=== PATIENT | female | born 1990 | race Hispanic/Latino ===

== ENCOUNTER 2024-07-10 18:55 | Inpatient (IN) | payer OTHER, SELFPAY ==
--- NOTE | ~2024-07-10 | CT_ITS ---
CT abdomen pelvis w con Ordering provider: Maddie Chavira MD History: 34 years Female with . L flank pain . Comparison: None. Technique: CT abdomen and pelvis with IV and without oral contrast. Automated exposure control and it erative reconstruction technique were employed. The dose-length product was 794.32 mGy-cm. 100 mL of Omnipaque 350 Findings: VISUALIZED LOWER CHEST: Dependent atelectatic changes. UPPER ABDOMINAL ORGANS: Liver: Hepatomegaly. Gallbladder: Normal. Spleen: Normal. Stomach/duodenum: Normal. Pancreas: Normal. Adrenals: Normal. Kidneys: 3 mm stone in the left ureterovesical junction with left hydroureter and hydronephrotic locke ges. PELVIC ORGANS: The bladder is underfilled. BOWEL AND MESENTERY: Colon: No evidence of diverticulitis. Multiple areas of narrowing suggestive of spasm. Status post ap pendectomy. Small Bowel: Normal. No obstruction. Peritoneum/mesentery: No free air or free fluid. No mesenteric lymphadenopathy. RETROPERITONEUM: Normal aorta. No retroperitoneal lymphadenopathy. MUSCULOSKELETAL: Superficial soft tissues: The superficial soft tissues are normal. Bones: Normal spine. IMPRESSION: 1. Stone in the left lower ureter with left hydronephrotic and hydroureter changes. 2. Hepatomegaly. Reviewed, dictated and finalized at location A. IMPRESSION: 1. Stone in the left lower ureter with left hydronephrotic and hydroureter lavon nges. 2. Hepatomegaly.
--- NOTE | ~2024-07-10 | XR_ITS ---
Supine and upright views of the abdomen Clinical history: Left-sided stone Findings: Bowel gas pattern is nonspecific. No evidence for obstruction or free air. No abnormal mass lesion or calcification is seen. Osseous structures are intact. Impression: No significant abnormality is seen. Reviewed, dictated and finalized at [facility]. Impression: No significant abnormality is seen.
[2024-07-10 19:00] VITALS: BP 122/86; PULSE 63; RESP 20; TEMP 36.6; O2SAT 100
[2024-07-10 19:27] LABS: Basophils Absolute Auto 0.1 K/mm3 (0.0-0.1); Basophils Percent Auto 0.3 % (0.2-1.2); Eosinophils Percent Auto 0.3 % (0-4.4); Hematocrit 40.6 % (37.0-47.0); Hemoglobin 13.6 g/dL (12.0-15.0); Immature Granulocyte Absolute 0.09 K/mm3 (0.00-0.031); Immature Granulocyte Percent A 0.6 % (0-0.5); Lymphocytes Absolute Auto 1.05 K/mm3 (0.9-3.2); Lymphocytes Percent Auto 6.7 % (18.3-44.2); Mean Corpuscular HGB Conc 33.5 g/dl (32-36); Mean Corpuscular Hemoglobin 29.3 pg (26-34); Mean Corpuscular Volume 87.5 fl (80-100); Monocytes Absolute Auto 0.7 K/mm3 (0.1-0.6); Monocytes Percent Auto 4.2 % (2.6-8.5); Neutrophils Absolute Auto 13.7 K/mm3 (1.3-6.7); Neutrophils Percent Auto 87.9 % (45.5-73.1); Platelet Count Result 255 k/mm3 (150-375); Red Blood Count 4.64 M/mm3 (4.2-5.4); Red Cell Distribution Width 13.4 % (11.5-14.5); White Blood Count 15.6 K/mm3 (4.5-10.0)
--- NOTE | 2024-07-10 19:28 | ED.ABDPAIN ---
HPI - Abdominal Pain General Chief Complaint: Abdominal Pain Stated Complaint: left flank pain Time Seen by Provider: 07/10/24 19:06 History of Present Illness HPI narrative: Patient is a 34-year-old female who presents to the emergency department this evening complaining of left flank pain. Patient states that the pain started out of nowhere around 3:00 p.m. this afternoon. Patient admits that the pain is associated with multiple episodes of vomiting. Patient denies any history of kidney stones and is currently denying any dysuria or hematuria. Patient also denies any fevers or chills at home. No additional symptoms or concerns at this time. Related Data Allergies Allergy/AdvReac Type Severity Reaction Status Date / Time No Known Allergies Allergy Unverified 07/03/11 11:19 Review of Systems Review of Systems: All systems are reviewed and are negative unless stated otherwise in the HPI. Exam Narrative: General: Alert, awake, afebrile, in no acute distress. HEENT: PERRL, no rhinorrhea, no post nasal drip, oropharynx clear. Cardiovascular: Regular rate and rhythm, no murmurs, rubs or gallops, no peripheral edema. Respiratory: Clear to auscultation bilaterally, no tachypnea, no wheezing, no rhonchi, no rubs, no respiratory distress. Abdomen: Soft, nontender, nondistended, no rebound, no guarding, no peritoneal signs. Musculoskeletal: No joint swelling or deformity, normal muscle tone. Skin: No rashes or petechia, no signs of infection. Neurological: Alert and oriented to person, place, and time. Follows all commands. No focal deficits, speech is clear and fluent. Course Vital Signs Vital signs: Vital Signs Temperature 97.8 F 07/10/24 19:00 Pulse Rate 63 07/10/24 19:00 Respiratory Rate 20 07/10/24 19:00 Blood Pressure 122/86 07/10/24 19:00 Pulse Oximetry 100 07/10/24 19:00 Oxygen Delivery Room Air 07/10/24 19:00 Temperature 97.8 F 07/10/24 19:00 Pulse Rate 52 L 07/10/24 22:50 Respiratory Rate 15 07/10/24 22:50 Blood Pressure 138/92 H 07/10/24 22:50 Pulse Oximetry 100 07/10/24 22:50 Oxygen Delivery Room Air 10/19/24 19:00 MDM - Abdominal Pain MDM Narrative Medical decision making narrative: The patient was evaluated by myself in the emergency department. History is obtained from patient who is an independent historian and physical exam was performed. External medical records were reviewed at this time. IV was established and pertinent tests were ordered. Patient was administered 1 L IV fluid bolus with normal saline, 2 mg of IV morphine for pain and 4 mg of IV Zofran for nausea. Laboratory results obtained revealing a leukocytosis of 15.6, otherwise unremarkable. Urinalysis revealed 3+ ketones, 1+ leuk esterases, 21-50 rbc's and 21-50 white blood cells with many squamous epithelial cells and 4+ bacteria. At this time patient was administered a 2 L IV fluid bolus with normal saline. At this time patient was started on Rocephin 1 g IV. Patient continues to have pain and at this time 15 mg of IV Toradol was administered. Imaging studies obtained included CT abdomen pelvis with IV contrast which was independently interpreted by me revealing a left UVJ 3 mm stone with left hydronephrotic and hydroureter changes, which is pending final radiology interpretation. Differential diagnosis considerations include pyelonephritis, nephrolithiasis with renal colic, pancreatitis, diverticulitis. Comorbidities impacting this visit include none. I have evaluated and discussed social determinants of health with the patient that could potentially impact subsequent diagnosis and treatment plans. On repeat assessment of the patient, reevaluation revealed that the patient is doing well and is in no acute distress. Patient symptoms have improved since she arrived to our emergency department. Repeat vital signs were all reviewed and noted to be stable. Differential diagnosis and treat
[2024-07-10 19:38] LABS: Alanine Aminotransferase 17 U/L (6-35); Albumin Level 4.5 g/dL (3.5-5.1); Alkaline Phosphatase 81 U/L (38-126); Anion Gap 11 mmol/L (4-12); Aspartate Amino Transferase 27 U/L (14-36); Bilirubin,Total 0.3 mg/dL (0.2-1.3); Blood Urea Nitrogen 16 mg/dL (7-17); Calcium 9.2 mg/dL (8.4-10.2); Carbon Dioxide 19 mmol/L (22-30); Chloride 108 mmol/L (98-107); Estimated CRCL calculation 76 ml/min; Estimated Glomerular Filt Rate > 60; Glucose 148 mg/dL (65-110); Lipase 86 U/L (23-300); Magnesium 1.9 mg/dL (1.6-2.3); Potassium 3.6 mmol/L (3.4-5.0); Sodium 138 mmol/L (137-145)
[2024-07-10 19:42] LABS: Add Urine Microscopic? YES; Appearance Urine Cloudy (Clear); Bacteria Urine 4+ /hpf; Bilirubin Urine Negative (Negative); Blood Urine 3+ (Negative); Color Urine Dark Yellow (Yellow); Glucose Urine UA Negative (Negative); Ketones Urine 3+ mg/dL (Negative); Leukocyte Esterase Ur 1+ LEU/UL (Negative); Nitrate Urine Negative (Negative); Non Pathogenic Casts 0-2; Protein Urine 1+ mg/dL (Negative); RBC Urine 21-50 /hpf (0-2); Specific Grav Ur 1.041 (1.001-1.035); Squamous Epithelial Cell Urine Many /hpf (Few); WBC Urine 21-50 /hpf (0-3)
[2024-07-10 19:48] LABS: SPREG INTERNAL CONTROL Positive; Serum Qual hCG Negative
[2024-07-10] MEDS: SODIUM CHLORIDE 0.9% IV 1,000 ML 999 ML IV CONT ×2 (19:48→21:12)
[2024-07-10] MEDS: ONDANSETRON INJ 4 MG/2 ML VIAL IV PUSH (19:48)
[2024-07-10] MEDS: MORPHINE SULFATE (*CRX) 2 MG/ML INJ IV PUSH (19:51)
[2024-07-10 19:52] VITALS: BP 112/60; PULSE 55; RESP 15; O2SAT 100
[2024-07-10 19:54] LABS: BEDSIDEPREGUCG Negative (Negative)
[2024-07-10] MEDS: KETOROLAC 15 MG/ML VIAL (*BKC) IV PUSH (20:57)
--- NOTE | 2024-07-10 22:43 | PM.IMHP ---
H&P: HPI History of Present Illness Date/Time: 07/10/24 22:43 Meds Home Medications and Allergies Allergies Allergy/AdvReac Type Severity Reaction Status Date / Time No Known Allergies Allergy Unverified 07/03/11 11:19 Vital Signs Vital Signs - 24 hr 07/10/24 19:00 07/10/24 19:52 Temperature 97.8 F Pulse Rate 63 55 L Respiratory Rate 20 15 Blood Pressure 122/86 112/60 Pulse Oximetry 100 100 Oxygen Delivery Room Air H&P: Results Labs Labs: Short CBC 07/10/24 Range/Units 19:21 WBC 15.6 H (4.5-10.0) K/mm3 Hgb 13.6 (12.0-15.0) g/dL Hct 40.6 (37.0-47.0) % Plt Count 255 (150-375) k/mm3 BMP 07/10/24 19:21 Sodium 138 Potassium 3.6 Chloride 108 H Carbon Dioxide 19 L BUN 16 Creatinine 1.00 Glucose 148 H Calcium 9.2 Liver Function 07/10/24 Range/Units 19:21 Total Bilirubin 0.3 (0.2-1.3) mg/dL AST 27 (14-36) U/L ALT 17 (6-35) U/L Alkaline Phosphatase 81 (38-126) U/L Albumin 4.5 (3.5-5.1) g/dL Urine 07/10/24 Range/Units 19:21 Urine Color Dark yellow (Yellow) Urine Appearance Cloudy H (Clear) Urine pH 6.0 (5.0-9.0) Ur Specific [place] 1.041 H (1.001-1.035) Urine Protein 1+ H (Negative) mg/dL Urine Glucose (UA) Negative (Negative) mg/dL
[2024-07-10 22:50] VITALS: BP 138/92; PULSE 52; RESP 15; O2SAT 100
[2024-07-11 01:00] VITALS: BP 114/63; PULSE 71; RESP 14; TEMP 36.6; O2SAT 100; BMI 34.4
[2024-07-11] MEDS: SODIUM CHLORIDE 0.9% IV 1,000 ML 100 ML IV CONT (01:17)
[2024-07-11] MEDS: ONDANSETRON INJ 4 MG/2 ML VIAL IV PUSH ×2 (03:31→08:57)
[2024-07-11 05:36] VITALS: BP 134/77; PULSE 64; RESP 16; TEMP 37.1; O2SAT 100
--- NOTE | 2024-07-11 08:25 | PM.IMPN ---
Progress Note: A&P Assessment and Plan (1) Urinary tract infection: Code(s): N39.0 - Urinary tract infection, site not specified Status: Acute Assessment and Plan: Rocephin x3 Sensitivities pending (2) Kidney stone on left side: Code(s): N20.0 - Calculus of kidney Status: Acute Assessment and Plan: consult pending recommendations NPO (3) Hydronephrosis: Code(s): N13.30 - Unspecified hydronephrosis Status: Acute Assessment and Plan: Secondary to stone See above (4) Hyperglycemia: Code(s): R73.9 - Hyperglycemia, unspecified Status: Acute Assessment and Plan: No history of diabetes Hemoglobin A1c pending (5) Hepatomegaly: Code(s): R16.0 - Hepatomegaly, not elsewhere classified Status: Acute Assessment and Plan: Liver enzymes WDL Subjective Date/time seen: 07/11/24 08:25 Objective Data Vital Signs Vital Signs: Vital Signs - 24 hr 07/10/24 19:00 07/10/24 19:52 07/10/24 22:50 Temperature 97.8 F Pulse Rate 63 55 L 52 L Respiratory Rate 20 15 15 Blood Pressure 122/86 112/60 138/92 H Pulse Oximetry 100 100 100 Oxygen Delivery Room Air 07/11/24 01:00 07/11/24 00:30 07/11/24 05:36 Temperature 97.9 F 98.7 F Pulse Rate 71 64 Respiratory Rate 14 16 Blood Pressure 114/63 134/77 Pulse Oximetry 100 100 Oxygen Delivery Room Air Intake/Output Intake/Output: Intake & Output 07/08/24 07/09/24 07/10/24 07/11/24 23:59 23:59 23:59 23:59 Intake Total 2049 0 Output Total 800 Balance 2049 - Meds/Results Medications: Active Medications Generic Name Dose Route Start Last Admin Trade Name Freq PRN Reason Stop Dose Admin Sodium Chloride 1,000 mls @ 100 mls/hr 07/11/24 01:06 07/11/24 01:17 Normal Saline Iv IV CONT 07/11/24 11:05 100 mls/hr .Q10H STA Administration Ondansetron HCl 4 mg 07/11/24 03:21 07/11/24 03:31 Ondansetron Inj 4 Mg/2 Ml Vial IV PUSH 4 mg Q6H PRN Administration Nausea And Vomiting Radiology Results: ITS Impressions Abdomen/Pelvis CT 07/10/24 21:49 IMPRESSION: 1. Stone in the left lower ureter with left hydronephrotic and hydroureter changes. 2. Hepatomegaly. Labs Labs: Laboratory Results - last 24 hr 07/10/24 07/10/24 19:21 19:52 WBC 15.6 H RBC 4.64 Hgb 13.6 Hct 40.6 MCV 87.5 MCH 29.3 MCHC 33.5 RDW 13.4 Plt Count 255 MPV 10.0 Immature Gran % (Auto) 0.6 H Neut % (Auto) 87.9 H Lymph % (Auto) 6.7 L [place] % (Auto) 4.2 Eos % (Auto) 0.3 Baso % (Auto) 0.3 Lymph # (Auto) 1.05 [place] # (Auto) 0.7 H Eos # (Auto) 0.0 Baso # (Auto) 0.1 Abs Immat Gran (auto) 0.09 H Absolute Neuts (auto) 13.7 H Absolute Nucleated RBC 0.000 Nucleated RBC % 0.0 Sodium 138 Potassium 3.6 Chloride 108 H Carbon Dioxide 19 L Anion Gap 11 BUN 16 Creatinine 1.00 Estim Creat Clear Calc 76 Estimated GFR > 60 Glucose 148 H Calcium 9.2 Magnesium 1.9 Total Bilirubin 0.3 AST 27 ALT 17 Alkaline Phosphatase 81 Total Protein 8.0 Albumin 4.5 Lipase 86 Serum HCG, Qual Negative Urine Color Dark yellow Urine Appearance Cloudy H Urine pH 6.0 Ur Specific [place] 1.041 H Urine Protein 1+ H Urine Glucose (UA) Negative Urine Ketones 3+ H Ur Blood (Man) 3+ H Urine Nitrate Negative Urine Bilirubin Negative Urine Urobilinogen 1.0 Leukocyte Esterase Rfl 1+ H Urine RBC 21-50 H Urine WBC 21-50 H Ur Squamous Epith Cells Many H Urine Bacteria 4+ H Urine Casts 0-2 POC Urine HCG, Qual Negative
--- NOTE | 2024-07-11 08:35 | PM.IMHP ---
H&P: HPI History of Present Illness Date/Time: 07/11/24 08:35 [facility] Social History Social History Smoking status: Never smoker Alcohol intake: never Substance use type: marijuana Do You Feel Safe in your Home?: Yes Lack of Transportation: YES Lack of Food: Never True Current Housing: I Have Housing Concerned About Future Housing: No Difficulty Paying Gas/Electric Bills: No Difficulty Paying for Meds: No Currently Unemployed: YES Education: Grade School Difficulty w/ Childcare or Family Care: No Spiritual care concerns: No Meds Home Medications and Allergies Home Medications Medication Instructions Recorded Confirmed Type No Home Medications 07/11/24 07/11/24 History Allergies Allergy/AdvReac Type Severity Reaction Status Date / Time No Known Allergies Allergy Verified 07/11/24 00:42 Vital Signs Vital Signs - 24 hr 07/10/24 19:00 07/10/24 19:52 07/10/24 22:50 Temperature 97.8 F Pulse Rate 63 55 L 52 L Respiratory Rate 20 15 15 Blood Pressure 122/86 112/60 138/92 H Pulse Oximetry 100 100 100 Oxygen Delivery Room Air 07/11/24 01:00 07/11/24 00:30 07/11/24 05:36 Temperature 97.9 F 98.7 F Pulse Rate 71 64 Respiratory Rate 14 16 Blood Pressure 114/63 134/77 Pulse Oximetry 100 100 Oxygen Delivery Room Air H&P: Results Labs Labs: Short CBC 07/10/24 Range/Units 19:21 WBC 15.6 H (4.5-10.0) K/mm3 Hgb 13.6 (12.0-15.0) g/dL Hct 40.6 (37.0-47.0) % Plt Count 255 (150-375) k/mm3 [facility] 07/10/24 19:21 Sodium 138 Potassium 3.6 Chloride 108 H Carbon Dioxide 19 L BUN 16 Creatinine 1.00 Glucose 148 H Calcium 9.2 Liver Function 07/10/24 Range/Units 19:21 Total Bilirubin 0.3 (0.2-1.3) mg/dL AST 27 (14-36) U/L ALT 17 (6-35) U/L Alkaline Phosphatase 81 (38-126) U/L Albumin 4.5 (3.5-5.1) g/dL Urine 07/10/24 Range/Units 19:21 Urine Color Dark yellow (Yellow) Urine Appearance Cloudy H (Clear) Urine pH 6.0 (5.0-9.0) Ur Specific [place] 1.041 H (1.001-1.035) Urine Protein 1+ H (Negative) mg/dL Urine Glucose (UA) Negative (Negative) mg/dL Assessment and Plan Assessment and plan (1) Urinary tract infection: Code(s): N39.0 - Urinary tract infection, site not specified Status: Acute Assessment and Plan: Rocephin x3 Sensitivities pending (2) Kidney stone on left side: Code(s): N20.0 - Calculus of kidney Status: Acute Assessment and Plan: left 2mm UVJ stone consult pain has resolved. She believes she passed the stone last night. ok to advance diet will check KUB pt will need GUEVARA in 4 weeks to confirm resolution of hydronephrosis. pt aware for need for followup and followup imaging to confirm no stricture or care home damage to kidney ua wa contaminated with squamous cell. agree with empiric abx. AVSS Cr normal. (3) Hydronephrosis: Code(s): N13.30 - Unspecified hydronephrosis Status: Acute Assessment and Plan: Secondary to stone See above (4) Hyperglycemia: Code(s): R73.9 - Hyperglycemia, unspecified Status: Acute Assessment and Plan: No history of diabetes Hemoglobin A1c pending (5) Hepatomegaly: Code(s): R16.0 - Hepatomegaly, not elsewhere classified Status: Acute Assessment and Plan: Liver enzymes WDL
[2024-07-11 08:52] LABS: Hemoglobin 13.1 g/dL (12.0-15.0); Mean Corpuscular HGB Conc 33.6 g/dl (32-36); Mean Corpuscular Hemoglobin 29.9 pg (26-34); Platelet Count Result 247 k/mm3 (150-375); Red Blood Count 4.38 M/mm3 (4.2-5.4); Red Cell Distribution Width 13.8 % (11.5-14.5); White Blood Count 13.9 K/mm3 (4.5-10.0)
[2024-07-11 09:13] LABS: Anion Gap 8 mmol/L (4-12); Blood Urea Nitrogen 7 mg/dL (7-17); Calcium 8.7 mg/dL (8.4-10.2); Carbon Dioxide 22 mmol/L (22-30); Chloride 109 mmol/L (98-107); Estimated CRCL calculation 123 ml/min; Estimated Glomerular Filt Rate > 60; Glucose 114 mg/dL (65-110); Potassium 3.6 mmol/L (3.4-5.0); Sodium 139 mmol/L (137-145)
--- NOTE | 2024-07-11 10:09 | WPDURCON ---
Assessment and Plan Assessment and plan (1) Kidney stone on left side: Code(s): N20.0 - Calculus of kidney Status: Acute Assessment and Plan: left 2mm UVJ stone pain has resolved. She believes she passed the stone last night. ok to advance diet will check KUB pt will need GUEVARA in 4 weeks to confirm resolution of hydronephrosis. pt aware for need for followup and followup imaging to confirm no stricture or skilled nursing damage to kidney ua wa contaminated with squamous cell. agree with empiric abx. AVSS Cr normal. (2) Hydronephrosis: Code(s): N13.30 - Unspecified hydronephrosis Status: Acute Urology Consult Note HPI Date Seen: 07/11/24 Requesting Physician: Gopal Niño MD Primary Care Provider: UNKNOWN,DOCTOR Consult Narrative Narrative: Shelia Shi is a 34 year old female who presented to ED with acute onset of left flank pain 10/10 in nature, sharp stabbing. No exacerbating or reliving factors. Denies prior hx of stones, no family hx of stones. Denies fever, or chills. no gross hematuria or dysuria. CT shows 2mm left UVJ stone. Last night she believes she passed the stone. Currently pain 0/10. Review of Systems Constitutional: Constitutional: Reports no additional constitutional complaints Eyes: Eyes: Reports no additional eye complaints ENT: Reports system reviewed and no additional complaints, except as documented Cardiovascular: Cardiovascular: Reports as per HPI and Reports no additional cardiovascular complaints Respiratory: Respiratory: Reports no additional respiratory complaints Genitourinary: Genitourinary: Reports no additional female genitourinary complaints Musculoskeletal: Musculoskeletal: Reports no additional musculoskeletal complaints Integumentary/Breasts: Skin/Breast: Reports system reviewed and no additional complaints, except as docu Neurologic: Reports system reviewed and no additional complaints, except as documented Psychiatric: Psychiatric: Reports no additional psychiatric complaints PMFSH Social History Social History Smoking status: Never smoker Alcohol intake: never Substance use type: marijuana Do You Feel Safe in your Home?: Yes Lack of Transportation: YES Lack of Food: Never True Current Housing: I Have Housing Concerned About Future Housing: No Difficulty Paying Gas/Electric Bills: No Difficulty Paying for Meds: No Currently Unemployed: YES Education: Grade School Difficulty w/ Childcare or Family Care: No Spiritual care concerns: No Meds Home Medications and Allergies Home Medications Medication Instructions Recorded Confirmed Type No Home Medications 07/11/24 07/11/24 History Allergies Allergy/AdvReac Type Severity Reaction Status Date / Time No Known Allergies Allergy Verified 07/11/24 00:42 Vital Signs Vital Signs - 24 hr 07/10/24 19:00 07/10/24 19:52 07/10/24 22:50 Temperature 36.6 C Pulse Rate 63 55 L 52 L Respiratory Rate 20 15 15 Blood Pressure 122/86 112/60 138/92 H Pulse Oximetry 100 100 100 Oxygen Delivery Room Air 07/11/24 01:00 07/11/24 00:30 07/11/24 05:36 Temperature 36.6 C 37.1 C Pulse Rate 71 64 Respiratory Rate 14 16 Blood Pressure 114/63 134/77 Pulse Oximetry 100 100 Oxygen Delivery Room Air Exam Const: General: comfortable and no acute distress Eyes: General: appearance normal, both eyes and all related structures Neck: Neck: supple Resp: Effort & Inspection: normal respiratory effort Cardio: Rate: regular rate Rhythm: regular rhythm GI: Inspection: non-distended GI Palp: Yes Soft to palpation, No Firmness to palpation present (GI) and No Tenderness to palpation present (GI) Skin: General skin exam: normal color Neuro: General: gait normal Speech: normal speech Extrem: General: normal to inspection Psych: Speech and movement: Normal speech
[2024-07-11 11:16] LABS: Hemoglobin A1C 5.3 % (<5.7)
--- NOTE | 2024-07-11 13:29 | PM.DS ---
DS: Admitting Diagnosis Discharge Date 07/19/2024 Admitting Diagnosis Kidney stone with hydronephrosis DS: Summary Hospital Course Reason for hospitalization: Kidney stone hydronephrosis Hospital Course: 34-year-old female who presents to the emergency department this evening complaining of left flank pain. Patient states that the pain started out of nowhere around 3:00 p.m. this afternoon. Patient admits that the pain is associated with multiple episodes of vomiting. Patient denies any history of kidney stones and is currently denying any dysuria or hematuria. Patient also denies any fevers or chills at home. No additional symptoms or concerns at this time. Patient has UTI with nephrosis an a 2mm kidney stone, patient was started on antibiotics and pain management. The patient states that she believes that she passed kidney stone overnight, the next day she had no pain assessment. She seen by Urology with recommendations for a KUB which did not show stone. Patient will be discharged on with recommendations to follow-up in 4 weeks with for renal ultrasound to Monitor hydronephrosis. Hospital course was uneventful, patient able to discharge home on oral antibiotics. Status at Discharge Functional status at discharge: independent ambulation Time Spent with Patient Time attestation: Total time spent providing and/or coordinating discharge services: Exam Const: General: comfortable and no acute distress HENMT: Face/Nose/Sinus: Normal nares present Mouth: Yes moist mucous membranes Eyes: General: appearance normal, both eyes and all related structures Pupils: Equal, round and reactive pupils present Neck: Neck: supple Resp: Effort & Inspection: normal respiratory effort Auscultation: clear to auscultation bilaterally Cardio: Rate: regular rate Rhythm: regular rhythm GI: GI Palp: Yes Soft to palpation Skin: General skin exam: normal color Neuro: Motor exam (neuro): Normal motor muscle tone present throughout Extrem: General: normal to inspection DS: Data Data Completed and Pending Pending studies at discharge: Urine culture pending Labs on day of discharge: Labs from last 24 hours 07/11/24 07/10/24 07/10/24 08:45 19:52 19:21 WBC 13.9 H 15.6 H RBC 4.38 4.64 Hgb 13.1 13.6 Hct 39.0 40.6 MCV 89.0 87.5 MCH 29.9 29.3 MCHC 33.6 33.5 RDW 13.8 13.4 Plt Count 247 255 MPV 10.0 10.0 Immature Gran % (Auto) 0.6 H Neut % (Auto) 87.9 H Lymph % (Auto) 6.7 L [place] % (Auto) 4.2 Eos % (Auto) 0.3 Baso % (Auto) 0.3 Lymph # (Auto) 1.05 [place] # (Auto) 0.7 H Eos # (Auto) 0.0 Baso # (Auto) 0.1 Abs Immat Gran (auto) 0.09 H Absolute Neuts (auto) 13.7 H Absolute Nucleated RBC 0.000 Nucleated RBC % 0.0 Sodium 139 138 Potassium 3.6 3.6 Chloride 109 H 108 H Carbon Dioxide 22 19 L Anion Gap 8 11 BUN 7 D 16 Creatinine 0.60 L 1.00 Estim Creat Clear Calc 123 76 Estimated GFR > 60 > 60 Glucose 114 H 148 H Hemoglobin A1c 5.3 Calcium 8.7 9.2 Magnesium 1.9 Total Bilirubin 0.3 AST 27 ALT 17 Alkaline Phosphatase 81 Total Protein 8.0 Albumin 4.5 Lipase 86 Serum HCG, Qual Negative Urine Color Dark yellow Urine Appearance Cloudy H Urine pH 6.0 Ur Specific [place] 1.041 H Urine Protein 1+ H Urine Glucose (UA) Negative Urine Ketones 3+ H Ur Blood (Man) 3+ H Urine Nitrate Negative Urine Bilirubin Negative Urine Urobilinogen 1.0 Leukocyte Esterase Rfl 1+ H Urine RBC 21-50 H Urine WBC 21-50 H Ur Squamous Epith Cells Many H Urine Bacteria 4+ H Urine Casts 0-2 POC Urine HCG, Qual Negative Imaging Radiologist's impression: CT abdomen pelvis w con Ordering provider: Maddie Chavira MD History: 34 years Female with . L flank pain . Comparison: None. Technique: CT abdomen and pelvis with IV and without oral contrast. Au
--- NOTE | 2024-07-11 13:47 | PM.IMHP ---
H&P: HPI History of Present Illness Date/Time: 07/11/24 13:47 Chief Complaint: Left flank pain Narrative: 34-year-old female who presents to the emergency department this evening complaining of left flank pain. Patient states that the pain started out of nowhere around 3:00 p.m. this afternoon. Patient admits that the pain is associated with multiple episodes of vomiting. Patient denies any history of kidney stones and is currently denying any dysuria or hematuria. Patient also denies any fevers or chills at home. No additional symptoms or concerns at this time. In the emergency room patient was found to have a UTI, 2 mm kidney stone with hydronephrosis. Urology was consulted, given IV antibiotics and pain management. Review of Systems Constitutional: Constitutional: Reports as per HPI Eyes: Eyes: Reports no additional eye complaints ENT: Reports as per HPI Cardiovascular: Cardiovascular: Reports no additional cardiovascular complaints Respiratory: Respiratory: Reports no additional respiratory complaints Gastrointestinal: Gastrointestinal: Reports no additional gastrointestinal complaints Genitourinary: Genitourinary: Reports as per HPI Musculoskeletal: Musculoskeletal: Reports as per HPI Integumentary/Breasts: Skin/Breast: Reports as per HPI Neurologic: Reports as per HPI Psychiatric: Psychiatric: Reports no additional psychiatric complaints PMFSH Social History Social History Smoking status: Never smoker Alcohol intake: never Substance use type: marijuana Do You Feel Safe in your Home?: Yes Lack of Transportation: YES Lack of Food: Never True Current Housing: I Have Housing Concerned About Future Housing: No Difficulty Paying Gas/Electric Bills: No Difficulty Paying for Meds: No Currently Unemployed: YES Education: Grade School Difficulty w/ Childcare or Family Care: No Spiritual care concerns: No Meds Home Medications and Allergies Home Medications Medication Instructions Recorded Confirmed Type No Home Medications 07/11/24 07/11/24 History Allergies Allergy/AdvReac Type Severity Reaction Status Date / Time No Known Allergies Allergy Verified 07/11/24 00:42 Vital Signs Vital Signs - 24 hr 07/10/24 19:00 07/10/24 19:52 07/10/24 22:50 Temperature 97.8 F Pulse Rate 63 55 L 52 L Respiratory Rate 20 15 15 Blood Pressure 122/86 112/60 138/92 H Pulse Oximetry 100 100 100 Oxygen Delivery Room Air 07/11/24 01:00 07/11/24 00:30 07/11/24 05:36 Temperature 97.9 F 98.7 F Pulse Rate 71 64 Respiratory Rate 14 16 Blood Pressure 114/63 134/77 Pulse Oximetry 100 100 Oxygen Delivery Room Air Exam Const: General: comfortable and no acute distress HENMT: Face/Nose/Sinus: Normal nares present Mouth: Yes moist mucous membranes Eyes: General: appearance normal, both eyes and all related structures Pupils: Equal, round and reactive pupils present Neck: Neck: supple Resp: Effort & Inspection: normal respiratory effort Auscultation: clear to auscultation bilaterally Cardio: Rate: regular rate Rhythm: regular rhythm GI: GI Palp: Yes Soft to palpation Skin: General skin exam: normal color Neuro: Speech: normal speech Extrem: General: normal to inspection Psych: Mental Status: mental status grossly normal H&P: Results Labs Labs: Short CBC 07/10/24 07/11/24 Range/Units 19:21 08:45 WBC 15.6 H 13.9 H (4.5-10.0) K/mm3 Hgb 13.6 13.1 (12.0-15.0) g/dL Hct 40.6 39.0 (37.0-47.0) % Plt Count 255 247 (150-375) k/mm3 [facility] 07/10/24 07/11/24 19:21 08:45 Sodium 138 139 Potassium 3.6 3.6 Chloride 108 H 109 H Carbon Dioxide 19 L 22 BUN 16 7 D Creatinine 1.00 0.60 L Glucose 148 H 114 H Calcium 9.2 8.7 Liver Function 07/10/24 Range/Units 19:21 Total Bilirubin 0.3 (0.2-1.3) mg/dL AST 27 (14-36) U/L ALT 17 (
[2024-07-11 14:00] VITALS: BP 121/58; PULSE 82; RESP 18; TEMP 36.6; O2SAT 99
== END 2024-07-11 14:45 | disposition home or self-care (01) | DRG 463 ==
LOC: ANHED 22:52 → ANH3MEDSUR 23:24
PROVIDERS: Admitting Provider Internal Medicine; Emergency Provider Emergency Medicine; Visit Provider Nurse Practitioner Gerontology
DX: N13.6 Pyonephrosis (principal); R16.0 Hepatomegaly, not elsewhere classified; R73.9 Hyperglycemia, unspecified
CPT/HCPCS: 36415; 74018; 74177; 80048; 80053; 81001; 81025; 83036; 83690; 83735; 84703; 85025; 85027; 87086; 96361; 96374; 96375; 99285; J0696; J1885; J2270; J2405; J7030; Q9967